=== PATIENT | female | born 1940 | race Caucasian/White ===

== ENCOUNTER 2018-05-21 15:45 | Outpatient (CLI) | payer MEDICARE ==
[~2018-05-21] VITALS: Ht 171.4 cm; Wt 82.1 kg
[2018-05-21 16:16] LABS: TOTAL HEMOGLOBIN 14.4 G/dl (12.0-16.0)
[2018-05-21] MEDS ORDERED: albuterol 2.5 MG/3 ML nebule NEB ONE (16:51)
== END 2018-05-21 23:59 | disposition home or self-care (01) ==
LOC: RT 15:45
PROVIDERS: ATTEND Internal Medicine Pulmonary Disease
DX: J98.4 Other disorders of lung (principal); R05 Cough
CPT/HCPCS: 85018; 94060; 94727; 94729; 94760